=== PATIENT | male | born 1990 | race Two or more races ===

== ENCOUNTER 2020-11-23 14:56 | Emergency (ER) | payer SELFPAY ==
[~2020-11-23] VITALS: Ht 170.2 cm; Wt 81.6 kg
[2020-11-23 15:03] VITALS: BP 116/86
--- NOTE | 2020-11-23 15:12 | NUR ---
Left Lower Extremity Elevated and iced
--- NOTE | 2020-11-23 15:41 | NUR ---
Patient discharged to home in stable condition. Written and verbal after care instructions given. Patient verbalizes understanding of instruction.
== END 2020-11-23 15:41 | disposition home or self-care (01) ==
LOC: ER 15:09
DX: S93.492A Sprain of other ligament of left ankle, initial encounter (principal); X50.1XXA Overexertion from prolonged static or awkward postures, initial encounter; Y93.73 Activity, racquet and hand sports; Y92.312 Tennis court as the place of occurrence of the external cause; Y99.8 Other external cause status
CPT/HCPCS: 73590-TC; 73610-TC